=== PATIENT | female | born 1995 | race African-American/Black ===

== ENCOUNTER 2020-12-08 21:44 | Emergency (ER) | payer BC ==
[~2020-12-08] VITALS: Ht 157.5 cm; Wt 61.0 kg
[2020-12-08] MEDS ORDERED: DIPHENHYDRAMINE 50MG/ML VIAL IV ONE (22:15)
[2020-12-08] MEDS ORDERED: LORAZEPAM 2MG/ML CPJ IV ONE (22:15)
[2020-12-08 23:34] LABS: BASOPHILS % 0.3 % (0.0-2.0); EOSINOPHILS % 2.8 % (0.0-5.0); HEMATOCRIT. 39.2 % (36.0-48.0); HEMOGLOBIN. 13.6 g/dL (12.0-16.0); LYMPHOCYTES % 36.7 % (20.0-50.0); MEAN CORPUSCULAR HEMOGLOBIN 29.3 pg (28.0-32.0); MEAN CORPUSCULAR VOLUME 84.7 fL (81.0-99.0); MEAN PLATELET VOLUME 7.8 fl (7.4-10.4); MONOCYTES % 7.4 % (2.0-8.0); NEUTROPHILS % 52.8 % (40.0-76.0); PLATELET 269 x1000/uL (130-400); RED BLOOD CELL COUNT 4.63 mill/uL (4.2-5.4); RED CELL DISTRIBUTION WIDTH 13.1 % (11.6-14.6)
[2020-12-08 23:38] LABS: CLARITY URINE CLEAR (CLEAR); COLOR URINE YELLOW (YELLOW); KETONES URINE NEGATIVE (NEGATIVE); LEUKOCYTE ESTERASE URINE NEGATIVE (NEGATIVE); NITRITE URINE NEGATIVE (NEGATIVE); OCCULT BLOOD URINE TRACE (NEGATIVE); PH URINE 6.5 (4.5-8.0); PROTEIN URINE NEGATIVE (NEGATIVE); UROBILINOGEN URINE 0.2 E.U./dL (0.2-1.0)
[2020-12-08 23:40] LABS: CHLORIDE 109 mEq/L (98-107)
[2020-12-08 23:46] LABS: ETHANOL BLOOD < 10 mg/dL
[2020-12-08 23:55] LABS: HCG SCREEN NEGATIVE
[2020-12-08 23:56] LABS: OPIATES URINE SCREEN NEGATIVE (NEGATIVE)
[2020-12-08 23:57] LABS: *AMPHETAMINES SCREEN URINE NEGATIVE (NEGATIVE); *BARBITURATES SCREEN URINE NEGATIVE (NEGATIVE); *BENZODIAZEPINES SCREEN URINE NEGATIVE (NEGATIVE); *COCAINE SCREEN URINE NEGATIVE (NEGATIVE); CANNABINOID URINE SCREEN NEGATIVE (NEGATIVE); METHADONE URINE SCREEN NEGATIVE (NEGATIVE); PHENCYCLIDINE URINE SCREEN NEGATIVE (NEGATIVE)
[2020-12-09 00:45] VITALS: BP 110/84
[2020-12-09] MEDS ORDERED: CYCL10TA7 MT (00:53)
== END 2020-12-09 01:17 | disposition home or self-care (01) ==
LOC: ER 21:44
DX: M62.838 Other muscle spasm (principal); I49.9 Cardiac arrhythmia, unspecified
CPT/HCPCS: 36415; 80053; 80305; 80320; 81003; 81025; 84703; 85025; 93005; 96374; 96375; 99284; J1200; J2060; Z7610; G0480